=== PATIENT | female | born 1995 | race Caucasian/White ===

== ENCOUNTER 2021-02-28 16:12 | Emergency (ER) | payer MEDICAID, SELFPAY ==
[2021-02-28 16:13] VITALS: BP 127/80; PULSE 76; RESP 18; TEMP 35.6; O2SAT 96; BMI 26.0
--- NOTE | 2021-02-28 16:37 | EDS_ITS ---
HPI HPI - GI History of Present Illness Chief Complaint: Chest Other Informant: patient Abdominal Pain/Flank Pain Onset: Yesterday Context: Gradual Onset Timing: Intermittent and Waxes and wanes Quality: Aching Location: Epigastric and RUQ Current Severity: Mild Maximum Severity: Severe Worsened by: Nothing Relieved by: Nothing Nausea/Vomiting/Emesis GI Symptom: Positive for Nausea; Negative for Vomiting Diarrhea/Melena/Hematochezia GI Symptom: Positive for Diarrhea; Negative for Melena and Hematochezia Onset: Today Stool Quality: Positive for Loose; Negative for Black, Maroon and BRB per rectum Severity: Mild Associated Symptoms Associated Symptoms: Negative for Dysuria, Frequency, Hematuria and Urgency Narrative Narrative: Healthy 25-year-old female presenting with colicky epigastric/right upper quadrant pain radiating into her right mid back. She started having pain yesterday, she was visiting a family member in [place], so she went to the ER there however there waiting room weight was over 6 h. She had some tests started and actually obtained an ultrasound of her abdomen, but then she left without being seen because of the weight and she was feeling better and decided to wait till she came home to be seen which is now. She states a little earlier the pain was severe again, did go away at some point last night and came back again today, now the pain has down some. She was nauseated but no vomiting. No fevers or chills. No thoracic symptoms. She has had kidney infections before and denies any urinary symptoms now which she has had with those in the past. No history of any abdominal surgeries in the past. She does not know the results of the ultrasound she had yesterday. PFSH PFSH no medical history Home Medications prenat.vits,[id number],[id number] [ Vitamin] 1 tab PO DAILY 02/28/21 [History Last Taken Unknown] Allergy/AdvReac Type Severity Reaction Status Date / Time No Known Allergies Allergy Verified 02/28/21 16:13 Social History Smoking Status: Never smoker ROS ROS ED Constitutional Constitutional ED: Denies chills or fever(s) Eyes Eyes: Denies change in vision or diplopia ENT ENT ED: Denies rhinorrhea or sore throat Cardiovascular Cardiovascular: Denies chest pain or palpitations Respiratory/Chest Respiratory/Chest: Denies cough or dyspnea Gastrointestinal Gastrointestinal: Reports abdominal pain, diarrhea and nausea; Denies vomiting Genitourinary Genitourinary ED: Denies dysuria or hematuria Musculoskeletal Musculoskeletal: Reports back pain; Denies neck pain Integumentary Denies abscess or rash Neurologic Neurologic: Denies headache(s), paresthesias or weakness Psychiatric Psychiatric: Denies anxiety or suicidal thoughts EXAM Physical Exam Const Vital Signs: 02/28/21 16:13 02/28/21 23:00 Temperature 96.0 F L Temperature Source Temporal Pulse Rate 76 65 Respiratory Rate 18 16 Blood Pressure 127/80 H 110/54 L Blood Pressure Mean 95 72 Pulse Ox 96 98 Oxygen Delivery Method Room Air Room Air Positive well nourished and well developed General Appearance ED: well developed and NAD HEENT Reports moist mucous membranes normocephalic and atraumatic Eyes PERRL and EOMs intact bilaterally Neck full ROM and supple Resp normal respiratory effort and clear to auscultation bilaterally Cardio regular rate, regular rhythm and no murmurs GI non-distended Auscultation: normoactive bowel sounds Palpation: soft and tender epigastric; Negative for guarding or rebound tenderness present Back/Spine no CVA tenderness General Back: other FROM Extremity normal to inspection General Extremety ED: Negative for edema, pulses abnormal or tenderness General Extremity: Negative for edema or pulses abnormal Neuro oriented x3, CN's II-XII intact bilaterally and no sensory deficits noted Sensorium / Orientation: awake and alert Motor Exam: strength 5/5 throughout Skin no rashes or lesions noted and no wounds MDM MDM MDM Narrative Medical decision making narrative: Patient symptoms are concerning for biliary colic. I gave her Zofran and Toradol, which resulted in resolution of her symptoms she felt much better. Her labs are concerning and that her total bilirubin is 2.6 and her other liver enzymes are all elevated as below. She remained comfortable in the emergency department. I was able to get the results of the right upper quadrant ultrasound that she had at an outside facility less than 24 hours ago, it shows gallstones and sludge with normal size, positive Mensah sign but no other findings of acute cholecystitis, with the common bile duct measuring up to 5.5 mm. Therefore since she does not have a leukocytosis and is feeling comfortable now did not feel that needed to be repeated. I discussed with surgery Dr. Martínez, she states the patient would not be appropriate for admission at this hospital since she will need ERCP prior to having a cholecystectomy, and there is no one currently at this hospital for the entire week that is credentialed to do ERCP. Patient lives closer to [place], we have checked every hospital in the region with ERCP capability, and none of them have an available bed. At this time I am awaiting callback from a physician at [facility] for possible acceptance there. Antibiotics ordered. Lab Data Attestation: I reviewed the patient's lab results. Labs: Laboratory Results - last 24 hr 02/28/21 02/28/21 02/28/21 17:00 17:00 17:17 WBC 7.5 RBC 4.31 Hgb 12.6 Hct 39.5 MCV 91.6 MCH 29.2 MCHC 31.9 L RDW Std Deviation 48.3 H RDW Coeff of Sunil 14.3 Plt Count 279 MPV 10.9 Immature Gran % (Auto) 0.100 Neut % (Auto) 72.7 H Lymph % (Auto) 16.7 L Swift % (Auto) 8.8 Eos % (Auto) 1.3 Baso % (Auto) 0.4 Absolute Neuts (auto) 5.5 Absolute Lymphs (auto) 1.26 Nucleated RBC % 0 Sodium 140 Potassium 4.1 Chloride 107 Carbon Dioxide 30.0 Anion Gap 3 L BUN 10 Creatinine 0.88 Estim Creat Clear Calc 97.73 Est GFR (MDRD) Af Amer 100 Est GFR (MDRD) Non-Af 82 BUN/Creatinine Ratio 11.4 Glucose 90 Calcium 8.8 Total Bilirubin 2.60 H AST 529 H ALT 614 H Alkaline Phosphatase 169 H Total Protein 7.7 Albumin 4.0 Globulin 3.7 Albumin/Globulin Ratio 1.1 Lipase 206 Urine Color Cancelled Urine Clarity Cancelled Urine pH Cancelled Ur Specific [place] Cancelled U Specif Grav (Refrac) Cancelled Urine Protein Cancelled Urine Glucose (UA) Cancelled Urine Ketones Cancelled Urine Occult Blood Cancelled Urine Nitrite Cancelled Urine Bilirubin Cancelled Urine Urobilinogen Cancelled Ur Leukocyte Esterase Cancelled Urine RBC Cancelled Urine WBC Cancelled Ur Squamous Epith Cells Cancelled Ur Transition Epith Cell Cancelled Ur Renal Epithelial Cell Cancelled Calcium Oxalate Crystal Cancelled Uric Acid Crystals Cancelled Triple Phos Crystals Cancelled Other Crystals Cancelled Amorphous Sediment Cancelled Urine Bacteria Cancelled Hyaline Casts Cancelled Fine Granular Casts Cancelled Coarse Granular Casts Cancelled Waxy Casts Cancelled RBC Casts Cancelled WBC Casts Cancelled Urine Mucus Cancelled Urine Trichomonas Cancelled Urine Yeast Cancelled Urine Test Cancelled 02/28/21 19:28 WBC RBC Hgb Hct MCV MCH MCHC RDW Std Deviation RDW Coeff of Sunil Plt Count MPV Immature Gran % (Auto) Neut % (Auto) Lymph % (Auto) Swift % (Auto) Eos % (Auto) Baso % (Auto) Absolute Neuts (auto) Absolute Lymphs (auto) Nucleated RBC % Sodium Potassium Chloride Carbon Dioxide Anion Gap BUN Creatinine Estim Creat Clear Calc Est GFR (MDRD) Af Amer Est GFR (MDRD) Non-Af BUN/Creatinine Ratio Glucose Calcium Total Bilirubin AST ALT Alkaline Phosphatase Total Protein Albumin Globulin Albumin/Globulin Ratio Lipase Urine Color Flory Urine Clarity Clear Urine pH 8.0 Ur Specific [place] 1.015 U Specif Grav (Refrac) Urine Protein 30 H Urine Glucose (UA) Normal Urine Ketones 5 H Urine Occult Blood 10 H Urine Nitrite Negative Urine Bilirubin 3 H Urine Urobilinogen 8 H Ur Leukocyte Esterase 100 H Urine RBC 0 SEEN Urine WBC 25-50 SEEN Ur Squamous Epith Cells 0-5 SEEN Ur Transition Epith Cell Ur Renal Epithelial Cell Calcium Oxalate Crystal Uric Acid Crystals Triple Phos Crystals Other Crystals Amorphous Sediment Urine Bacteria RARE Hyaline Casts Fine Granular Casts Coarse Granular Casts Waxy Casts RBC Casts WBC Casts Urine Mucus 0 SEEN Urine Trichomonas Urine Yeast Urine Test Negative Discharge Plan Triage Chief Complaint: Chest Other ED Provider: Javi Conner Dx/Rx/DC Orders Clinical Impression: Biliary colic, Cholelithiasis, Elevated liver enzymes, Obstructive hy perbilirubinemia Prescriptions: No Action Vitamin Tablet 1 tab PO DAILY RF: 0 Primary Care Provider: Care Physician,No Primary Referrals: Care Physician,No Primary [Primary Care Provider] - Disposition Disposition: [facility]
[2021-02-28] MEDS: Ketorolac 30 MG/ML Syringe IV (17:00)
[2021-02-28] MEDS: Ondansetron 4 MG/2 ML Vial IV (17:00)
[2021-02-28 17:15] LABS: Absolute Lymphocyte Count 1.26 X10^3/uL (0.83-4.51); Absolute Neutrophil Count 5.5 X10^3/uL (2.0-7.7); Basophil# 0.03 X10^3/uL; Basophil% 0.4 % (0-1); Eosinophils% 1.3 % (0-5); Hematocrit 39.5 % (37-47); Hemoglobin 12.6 g/dL (12.0-15.0); Lymphocyte # 1.26 X10^3/ul (0.83-4.51); Lymphocyte % 16.7 % (19-41); Mean Corp Hgb Conc 31.9 g/dL (32-36); Mean Corpuscular Hgb 29.2 pg (27.0-32.0); Mean Corpuscular Volume 91.6 fL (81-99); Mean Platelet Vol. 10.9 fl (6.2-12.0); Monocyte# 0.66 X10^3/uL; Monocyte% 8.8 % (0-10); NRBC Flagged by Analyzer 0 % (0-5); Neutrophil # 5.48 X10^3/uL (2.7-7.7); Neutrophil % 72.7 % (47-70); Platelet Count 279 K/mm3 (150-450); RBC Distribution Width CV 14.3 % (11.6-14.6); RBC Distribution Width SD 48.3 fl (35.1-43.9); Red Blood Count 4.31 M/mm3 (4.2-5.4); White Blood Count 7.5 K/mm3 (4.4-11.0)
[2021-02-28 17:40] LABS: BUN 10 mg/dL (7-18); BUN/Creat Ratio 11.4 RATIO (10-20); Creatinine, Serum 0.88 mg/dL (0.55-1.02); EST Glomerular Filtration Rate 82 mL/min (>60); Est Glom Filt Rate - Afr Amer 100 mL/min (>60); Estimated Creatinine Clearance 97.73 ml/min; Glucose 90 mg/dL (74-106); Protein, Total 7.7 g/dL (6.4-8.2)
[2021-02-28 17:41] LABS: ALB/GLOB Ratio 1.1 RATIO (0.9-2.4); AST(SGOT) 529 U/L (15-37); Alanine Aminotransfer ALT/SGPT 614 U/L (13-56); Alkaline Phosphatase 169 U/L (45-117); Anion Gap 3 (5-15); Calcium,Total 8.8 mg/dL (8.5-10.1); Chloride 107 mmol/L (98-107); Globulin 3.7 g/dL (2.2-4.2); Lipase 206 U/L (73-393); Potassium 4.1 mmol/L (3.5-5.1); Sodium Level 140 mmol/L (136-145)
[2021-02-28 19:37] LABS: Mucous, Urine 0 SEEN /hpf (<or=2+); Red Blood Cells-Urine 0 SEEN /hpf (0-5)
[2021-02-28 19:47] LABS: Color, Urine Amber (Yellow); Glucose, Dipstick Normal (Normal); Ketone-Dipstick 5 mg/dl (Negative); Leukocyte Esterase-Dipstick 100 /ul (Negative); Nitrite-Dipstick Negative (Negative); Occult Blood-Urine 10 /ul (Negative); Protein-Dipstick 30 mg/dl (Negative); Specific Gravity, Urine 1.015 (1.002-1.030); Urine Clarity Clear (Clear); Urine Urobilinogen 8 mg/dl (Normal)
[2021-02-28 19:49] LABS: Urine Bilirubin Dipstick 3 mg/dL (Negative)
[2021-02-28 20:00] LABS: Bacteria RARE /hpf (None Seen); Squamous Epithelial Cells - UA 0-5 SEEN /hpf (5-10); White Blood Cells 25-50 SEEN /hpf (0-5)
[2021-02-28 20:01] LABS: Internal QC Validated? YES +Cl - CLEAR BKGD; Pregnancy, Urine Negative Negative
--- NOTE | 2021-02-28 20:02 | ED.RN ---
[facility] called for possible transfer
--- NOTE | 2021-02-28 21:26 | ED.RN ---
[facility] called and received update. they are waiting for there doctor to call back at this time
[2021-02-28 23:00] VITALS: BP 110/54; PULSE 65; RESP 16; O2SAT 98
[2021-03-01 01:52] VITALS: BP 110/50; PULSE 65; RESP 16; O2SAT 98
--- NOTE | 2021-03-01 02:01 | ED.RN ---
attempted to call report to nurse at [facility], nurse requested to have [facility] phone number and will call back in 5 minutes.
== END 2021-03-01 01:50 | disposition short-term general hospital (02) ==
PROVIDERS: Emergency Provider Emergency Medicine
DX: K80.70 Calculus of gallbladder and bile duct without cholecystitis without obstruction (principal); R94.5 Abnormal results of liver function studies
CPT/HCPCS: 80053; 81001; 81025; 83690; 85025; 87086; 87088; 87186; 87426; 96365; 96375; 99285; J7050; A4216; J2405